=== PATIENT | male | born 1965 | race Caucasian/White ===

== ENCOUNTER 2016-10-03 13:56 | Emergency (ER) | payer OTHER ==
[2016-10-03] MEDS ORDERED: Bacitracin Zinc 1 Packet ONE (14:22)
== END 2016-10-03 14:34 | disposition home or self-care (01) ==
LOC: BURERS 13:56
DX: T23.442A Corrosion of unspecified degree of multiple left fingers (nail), including thumb, initial encounter (principal); T49.0X1A Poisoning by local antifungal, anti-infective and anti-inflammatory drugs, accidental (unintentional), initial encounter; E78.5 Hyperlipidemia, unspecified; F17.210 Nicotine dependence, cigarettes, uncomplicated
CPT/HCPCS: 99283